=== PATIENT | female | born 1985 | race Caucasian/White ===

== ENCOUNTER 2019-06-21 05:19 | Day surgery (SDC) | payer MEDICAID ==
[~2019-06-21] VITALS: Ht 165.1 cm; Wt 76.7 kg
[2019-06-21] VITALS (13 sets, daily range): BP systolic 99–113; BP diastolic 52–65; PULSE 60–84; RESP 13–19; Ht 165.1 cm; Wt 76.7 kg
[~2019-06-21 05:19] MED LIST: PREN1TAB9 PO
[2019-06-21] MEDS ORDERED: CLINDAMYCIN 900 MG/D5W (PMX) 50 ML IVPB ONE ×2 (06:30→07:02)
[2019-06-21] MEDS ORDERED: CLINDAMYCIN 900 MG INJ IVPB ONE (06:30)
--- NOTE | 2019-06-21 06:59 | PREAC ---
Date/Time of Note Date/Time of Note DATE: 06/21/19 TIME: 06:57 Anesthesia Eval and Record Evaluation Time Pre-Procedure Interview DATE: 06/21/19 TIME: 06:57 Age 34 Sex female NPO: 8 hrs Preoperative diagnosis desire for permanent sterilization Planned procedure lap BT fulguration possible laparotomy Past Medical History Past Medical History: None Surgery & Anesthesia Issues No known issue Meds Anticoagulation: No Beta Ayaz within 24 hr: No Reason Beta Ayaz not given: Pt. not on B-Ayaz Discontinued Reported Medications Vits W-Ca,Fe,Fa(<1MG) ( #2) 1 Tab Tablet, 1 TAB PO DAILY 02/07/14 Current Medications Lactated Ringer's 1,000 ml @ 125 mls/hr Q8H ONCE IV Last administered on 06/21/19at 06:18; Admin Dose 125 MLS/HR; Start 06/21/19 at 07:00; Stop 06/21/19 at 14:59 Clindamycin HCl/ Dextrose 50 ml @ 50 mls/hr ONCE ONCE IVPB ; Start 06/21/19 at 06:30; Stop 06/21/19 at 07:29 Meds reviewed: Yes Allergies Coded Allergies: Penicillins (Verified Allergy, Severe, 06/21/19) Allergies Reviewed: Yes Labs/Studies Labs Reviewed: Reviewed by anesthesiologist test: Negative Pre-procedure Exam Last vitals Vital Signs Date Temp Pulse Resp B/P (MAP) Pulse Ox O2 O2 Flow FiO2 Time Delivery Rate 06/21/19 97.7 70 16 113/65 99 Room Air 06:23 (81) Airway: Adequate mouth opening, Adequate thyromental dist Mallampati: Mallampati II Teeth: Normal Lung: Normal Heart: Normal ASA Physical Status ASA physical status: 1 Emergency: None Planned Anesthetic General/MAC: ETT Planned Pain Management Parenteral pain med, Local by surgeon Pre-operative Attestations Prior to commencing anesthesia and surgery, the patient was re-evaluated, there was verification of: *The patient's identity *The results of appropriate recent lab work and preoperative vital signs *The above evaluation not changing prior to induction *Anesthetic plan, risk benefits, alternative and complications discussed with patient/family; questions answered; patient/family understands, accepts and wishes to proceed. RADHA HURTADO Jun 21, 2019 06:59
[2019-06-21] MEDS ORDERED: LACTATED RINGER'S 1,000 ML (ENTER RATE) IV ONE (07:00)
[2019-06-21] MEDS ORDERED: DESFLURANE 15 MIN ONE (07:00)
[2019-06-21] MEDS ORDERED: CEFAZOLIN 2 GM/50 ML (PMX) 50 ML IVPB ONE (07:00)
[2019-06-21] MEDS ORDERED: LIDOCAINE 2% (SDV) 5 ML INJ ONE (07:02)
[2019-06-21] MEDS ORDERED: ROCURONIUM 50 MG INJ ONE (07:02)
[2019-06-21] MEDS ORDERED: PROPOFOL 20 ML ONE (07:02)
[2019-06-21] MEDS ORDERED: MIDAZOLAM 1 MG/ML 2 ML INJ ONE (07:03)
[2019-06-21] MEDS ORDERED: FENTAnyl 50 MCG/ML VIAL ONE (07:03)
[2019-06-21] MEDS ORDERED: BUPIVACAINE 0.5%/EPI (SDV) 30 ML INJ ONE (07:09)
[2019-06-21] MEDS ORDERED: METOCLOPRAMIDE 10 MG INJ ONE (07:50)
[2019-06-21] MEDS ORDERED: DEXAMETHASONE 4 MG/ML 5 ML INJ ONE (07:50)
[2019-06-21] MEDS ORDERED: ONDANSETRON 4 MG INJ ONE (07:50)
[2019-06-21] MEDS ORDERED: FAMOTIDINE 20 MG INJ ONE (07:50)
[2019-06-21] MEDS ORDERED: MEPERIDINE 25 MG INJ IV PRN (08:00)
[2019-06-21] MEDS ORDERED: OXYCODONE/ACETAMINOPHEN (5/325) TAB PO PRN ×2 (08:00)
[2019-06-21] MEDS ORDERED: HYDROmorphONE 1 MG/5 ML IV SYRINGE IV PRN ×3 (08:00)
[2019-06-21] MEDS ORDERED: LABETALOL HCL 20MG INJ IV PRN (08:00)
[2019-06-21] MEDS ORDERED: GLYCOPYRROLATE 0.4 MG INJ ONE (08:21)
[2019-06-21] MEDS ORDERED: NEOSTIGMINE 3 MG/3 ML SYRINGE ONE (08:21)
--- NOTE | 2019-06-21 09:18 | OPR ---
Date/Time of Note Date/Time of Note DATE: 06/21/19 TIME: 09:16 Operative Report Procedure Date: Jun 21, 2019 Preoperative Diagnosis Desires permanent sterilization Postoperative Diagnosis same Operation/Procedure Performed Laparoscopic bilateral salpingectomies Surgeon Sandra Hartmann MD Tavern Operator none Anesthesia Type: general Estimated Blood Loss: minimal Transfusion none Specimen segments of bilateral tubes Grafts/Implants none Tubes/Drains none Complications none Pt Condition Post Procedure: stable Disposition: PACU Procedure Description FINDINGS: Normal tubes, ovaries bilaterally. Normal uterus. CONSENT: Please see my preop H and P consent in the office for the consent process. DESCRIPTION OF PROCEDURE: She was taken to operating room and general anesthesia was induced. She was prepped and draped in the usual sterile fashion in dorsal lithotomy position. Surgical time-out was done. Anterior lip of the cervix was grasped using a single-tooth tenaculum, and a HUMI was inserted in normal fashion. The tenaculum was removed. There was no bleeding from the cervix. The patient already had a Jensen catheter as well. Gloves were changed. A 5 mm incision was developed inside the umbilicus. A blunt trocar was inserted in the normal fashion. Intraperitoneal position was confirmed using the laparoscope. Pneumoperitoneum was obtained. The patient was placed in Trendelenburg position. A second trocar was inserted under direct visualization of the laparoscope at the pubic hairline in the midline. Right tube was coagulated and transected 7 cm medial to fimbriated portion of the tube. Right salpingectomy was performed by coagulating and transecting the mesosalpinx while at all times hugging the tube. The tube was removed and sent to pathology. the edges of the mesosalpinx was not bleeding, but for abundance of precaution, I cauterized the edges of the mesosalpinx again. There was no bleeding. Same procedure was done on the contralateral side. All instruments removed under direct visualization of the laparoscope after pneumoperitoneum was released. There was no bleeding. Skin closed using 4-0 Monocryl. Then 10 mL 0.25% Marcaine with epinephrine was injected at the incision sites. HUMI was removed. There was no bleeding from the vagina. Patient tolerated the procedure well. SANDRA HARTMANN MD Jun 21, 2019 09:18
--- NOTE | 2019-06-21 09:22 | PAC ---
Date/Time of Note Date/Time of Note DATE: 06/21/19 TIME: 09:22 Post-Anesthesia Notes Post-Anesthesia Note Last documented vital signs Vital Signs Date Temp Pulse Resp B/P (MAP) Pulse Ox O2 O2 Flow FiO2 Time Delivery Rate 06/21/19 97.7 09:13 06/21/19 68 19 105/55 100 Mask 6.0 09:01 (72) Activity: WNL Respiratory function: WNL Cardiovascular function: WNL Mental status: Baseline Pain reasonably controlled: Yes Hydration appropriate: Yes Nausea/Vomiting absent: Yes RADHA HURTADO Jun 21, 2019 09:22
== END 2019-06-21 11:15 | disposition home or self-care (01) ==
LOC: SDS 05:19
PROVIDERS: ATTEND Specialist
DX: Z30.2 Encounter for sterilization (principal)
CPT/HCPCS: 58661; 88302; J1100; J2175; J2250; J2405; J2710; J2765; J3010; Z7610; J0690